=== PATIENT | female | born 1960 | race Asian ===

== ENCOUNTER 2017-11-10 04:27 | Emergency (ER) | payer OTHER ==
[~2017-11-10] VITALS: Ht 154.9 cm; Wt 44.5 kg
[2017-11-10 04:30] VITALS: BP 121/80
[2017-11-10] MEDS ORDERED: diphenhydrAMINE HCL ELIX 25 MG/10 ML UDC ONE (04:48)
[2017-11-10] MEDS ORDERED: diphenhydrAMINE HCL ELIX 25 MG/10 ML UDC PO ONE (05:00)
== END 2017-11-10 04:51 | disposition home or self-care (01) ==
LOC: ER 04:30
DX: S60.561A Insect bite (nonvenomous) of right hand, initial encounter (principal); W57.XXXA Bitten or stung by nonvenomous insect and other nonvenomous arthropods, initial encounter; Y93.89 Activity, other specified; Y92.89 Other specified places as the place of occurrence of the external cause; Y99.8 Other external cause status
CPT/HCPCS: A4606; Q0163; Z7610